=== PATIENT | female | born 1980 | race Two or more races ===

== ENCOUNTER 2020-12-18 08:55 | Outpatient (CLI) | payer OTHER | END 2020-12-18 09:10 | disposition home or self-care (01) | LOC: RX STUDY 08:55 | PROVIDERS: ATTEND Obstetrics & Gynecology | DX: Q50.6 Other congenital malformations of fallopian tube and broad ligament (principal) ==

== ENCOUNTER 2022-12-12 12:39 | Outpatient (CLI) | payer OTHER | END 2022-12-12 15:45 | disposition home or self-care (01) | LOC: PRENATAL 12:39 | PROVIDERS: ATTEND Obstetrics & Gynecology Maternal & Fetal Medicine | DX: O36.80X0 Pregnancy with inconclusive fetal viability, not applicable or unspecified (principal); Z36.9 Encounter for antenatal screening, unspecified; Z36.82 Encounter for antenatal screening for nuchal translucency; O09.529 Supervision of elderly multigravida, unspecified trimester; O09.819 Supervision of pregnancy resulting from assisted reproductive technology, unspecified trimester; O34.10 Maternal care for benign tumor of corpus uteri, unspecified trimester; Z3A.12 12 weeks gestation of pregnancy ==

== ENCOUNTER 2023-02-03 12:59 | Outpatient (CLI) | payer OTHER ==
[2023-02-03] MEDS ORDERED: PRENATABS RX T1 EACH PO (17:34)
== END 2023-02-03 13:09 | disposition home or self-care (01) ==
LOC: PRENATAL 12:59
PROVIDERS: ATTEND Obstetrics & Gynecology Maternal & Fetal Medicine
DX: O35.3XX0 Maternal care for (suspected) damage to fetus from viral disease in mother, not applicable or unspecified (principal); O09.529 Supervision of elderly multigravida, unspecified trimester; O09.819 Supervision of pregnancy resulting from assisted reproductive technology, unspecified trimester; O34.10 Maternal care for benign tumor of corpus uteri, unspecified trimester; Z3A.19 19 weeks gestation of pregnancy

== ENCOUNTER 2023-02-03 16:15 | Inpatient (IN) | payer OTHER ==
[~2023-02-03] VITALS: Ht 160 cm; Wt 64.4 kg
[2023-02-03] MEDS ORDERED: PRENATABS RX T1 EACH PO (17:34)
[2023-02-03 17:42] LABS: HEMATOCRIT 36.9 % (36.0-45.00); HEMOGLOBIN 12.1 g/dL (12.0-15.00); MEAN CELL VOLUME 84.9 fL (80.00-100.00); MEAN CORPUSCULAR HEMOGLOBIN 27.9 pg (27.00-32.0); MEAN CORPUSCULAR HGB CONC 32.9 g/dl (32.0-36.0); PLATELET COUNT 270 K/uL (150-450); RED BLOOD COUNT 4.34 M/uL (4.00-6.00); RED CELL DISTRIBUTION WIDTH 14.4 % (11.5-14.5)
[2023-02-03 18:01] LABS: INR < 0.93; PARTIAL THROMBOPLASTIN TIME 24.8 SECONDS (22.0-34.0); PROTHROMBIN TIME 9.8 SECONDS (9.0-11.5)
== END 2023-02-04 00:20 | disposition home or self-care (01) | DRG 819 ==
LOC: LDR 16:15
PROVIDERS: ADMIT Obstetrics & Gynecology Maternal & Fetal Medicine; ATTEND Obstetrics & Gynecology Maternal & Fetal Medicine
PROC: 0UVC7ZZ Restriction of Cervix, Via Natural or Artificial Opening (ICD-10-PCS; principal; 2023-02-03 19:30)
DX: O34.32 Maternal care for cervical incompetence, second trimester (principal); Z3A.20 20 weeks gestation of pregnancy; Z20.822 Contact with and (suspected) exposure to COVID-19

== ENCOUNTER 2023-02-18 09:04 | Outpatient (CLI) | payer OTHER ==
[~2023-02-18 09:04] MED LIST: PRENATABS RX T1 EACH PO
== END 2023-02-18 09:05 | disposition home or self-care (01) ==
LOC: PRENATAL 09:04
PROVIDERS: ATTEND Obstetrics & Gynecology Maternal & Fetal Medicine
DX: O09.529 Supervision of elderly multigravida, unspecified trimester (principal); O09.819 Supervision of pregnancy resulting from assisted reproductive technology, unspecified trimester; O34.10 Maternal care for benign tumor of corpus uteri, unspecified trimester; O26.879 Cervical shortening, unspecified trimester; Z3A.22 22 weeks gestation of pregnancy

== ENCOUNTER → 2023-03-10 | Outpatient (CLI) | payer OTHER | END | disposition home or self-care (01) | LOC: PRENATAL 15:27 | PROVIDERS: ATTEND Obstetrics & Gynecology Maternal & Fetal Medicine | DX: O26.849 Uterine size-date discrepancy, unspecified trimester (principal); O26.879 Cervical shortening, unspecified trimester; O09.529 Supervision of elderly multigravida, unspecified trimester; O09.819 Supervision of pregnancy resulting from assisted reproductive technology, unspecified trimester; Z3A.24 24 weeks gestation of pregnancy ==

== ENCOUNTER 2023-04-03 10:34 | Outpatient (CLI) | payer OTHER | END 2023-04-03 10:36 | disposition home or self-care (01) | LOC: PRENATAL 10:34 | PROVIDERS: ATTEND Obstetrics & Gynecology Maternal & Fetal Medicine | DX: O26.849 Uterine size-date discrepancy, unspecified trimester (principal); O09.529 Supervision of elderly multigravida, unspecified trimester; O09.819 Supervision of pregnancy resulting from assisted reproductive technology, unspecified trimester; O26.879 Cervical shortening, unspecified trimester; Z3A.28 28 weeks gestation of pregnancy ==

== ENCOUNTER → 2023-05-13 15:24 | Outpatient (CLI) | payer OTHER | END | disposition home or self-care (01) | LOC: PRENATAL 15:24 | PROVIDERS: ATTEND Obstetrics & Gynecology Maternal & Fetal Medicine | DX: O26.849 Uterine size-date discrepancy, unspecified trimester (principal); O36.8199 Decreased fetal movements, unspecified trimester, other fetus; O09.529 Supervision of elderly multigravida, unspecified trimester; O09.819 Supervision of pregnancy resulting from assisted reproductive technology, unspecified trimester; Z3A.34 34 weeks gestation of pregnancy ==